=== PATIENT | female | born 1950 | race Hispanic/Latino ===

== ENCOUNTER → 2016-10-09 | Outpatient (CLI) | payer OTHER ==
--- NOTE | 2016-10-10 07:08 | RAD ---
EXAM DESCRIPTION: Foot,Left 3 Views CLINICAL HISTORY: 66 years Female, PAIN COMPARISON: None. FINDINGS: 3 views of the left foot show no acute fracture or malalignment. There is a small plantar calcaneal spur. No radiopaque foreign body or soft tissue gas. IMPRESSION: Calcaneal spurring, otherwise unremarkable exam. Electronically signed by: Carlos Cabrera MD 10/10/2016 7:08 AM CDT Workstation: [id number]
== END | disposition home or self-care (01) ==
LOC: YCFC.O 12:31
PROVIDERS: ATTEND Nurse Practitioner Family
DX: M79.672 Pain in left foot (principal)

== ENCOUNTER → 2016-11-09 | Outpatient (CLI) | payer OTHER ==
--- NOTE | 2016-11-09 12:59 | MAM ---
History: Well woman exam. Date of exam: 11/09/2016 Services provided: Bilateral full field digital screening mammography. CAD, the images were reviewed with R2 computer aided detection. FINDINGS: Glandular tissue is scattered glandular contour with increased mammographic density. No prior study is currently available for comparison. No dominant mass, architectural distortion or clustered microcalcification. IMPRESSION: Benign exam Recommendation: Routine annual mammography BIRAD CATEGORY: 2 BENIGN Electronically signed by: Delmy Estes MD 11/09/2016 12:58 PM CDT Workstation: [id number]
== END | disposition home or self-care (01) ==
LOC: MAMMO 08:46
PROVIDERS: ATTEND Family Medicine
DX: Z12.31 Encounter for screening mammogram for malignant neoplasm of breast (principal)

== ENCOUNTER → 2016-11-22 | Outpatient (CLI) | payer OTHER | LOC: GMAM 14:47 | PROVIDERS: ATTEND Family Medicine | DX: R31.21 Asymptomatic microscopic hematuria (principal) ==

== ENCOUNTER 2016-11-24 09:10 | Emergency (ER) | payer OTHER ==
[2016-11-24 09:36] VITALS: TEMP 98.8
--- NOTE | 2016-11-24 09:41 | ED.PDOC ---
History of Present Illness - General Chief Complaint: General Stated Complaint: nausea/dizziness Time Seen by Provider: 11/24/16 09:30 Source: patient Exam Limitations: language barrier - speaks only lumber checker present - History of Present Illness Initial Comments: Alicia Moura 66 y/o female stated thru events assistant that she had Lumbar mri done for her chronic back pain then after the test was done she felt dizzy,nauseous, and personnel at [facility] found her to be confused but patient stated she does not speak polish and most likely the language barrier that she was then brought here and events assistant was called .She denies medical illness except for her chronic back pain and osteoporosis.Denies weakness,blurry vision dysarthria, bowel or bladder dysfunction. Timing/Duration: 1-3 hours Severity: mild Improving Factors: nothing, other - felt better gradually while in ER Worsening Factors: nothing Associated Symptoms: other - see hpi Allergies/Adverse Reactions: Allergies NO KNOWN ALLERGY Allergy (Verified 11/24/16 09:40) Review of Systems - Review of Systems Constitutional: States: no symptoms reported EENTM: States: no symptoms reported Respiratory: States: no symptoms reported Cardiology: States: no symptoms reported Gastrointestinal/Abdominal: States: no symptoms reported Genitourinary: States: no symptoms reported Musculoskeletal: States: no symptoms reported Skin: States: no symptoms reported Neurological: States: see HPI Endocrine: States: see HPI Hematologic/Lymphatic: States: no symptoms reported Past Medical History (General) - Patient Medical History Hx Other PMH: Yes - osteoporosis,chronic back pain Surgical History: other - hysterectomy - Social History Hx Tobacco Use: No Hx Alcohol Use: No Hx Substance Use: No - Activities of Daily Living Patient Lives Alone: No - lives with son Grooming Ability: Independent Eating (Feeding) Ability: Independent Toileting Ability: Independent - Female History Patient is a Female of Child Bearing Age (10 -59 yrs old): No Family Medical History - Family History Father Family History: Unknown Mother Family History: No Known Living Status: Physical Exam - Physical Exam General Appearance: Alert, Anxious, No apparent distress Eye Exam: bilateral normal Ears, Nose, Throat: abnormal TM (R), abnormal TM (L), other - hearing aids Neck: non-tender, full range of motion, supple Respiratory: chest non-tender, lungs clear, normal breath sounds, no respiratory distress Cardiovascular/Chest: normal peripheral pulses, regular rate, rhythm, no murmur Peripheral Pulses: radial,right: 1+, radial,left: 1+ Gastrointestinal/Abdominal: normal bowel sounds, non tender, soft, no organomegaly Back Exam: normal inspection, no CVA tenderness, no vertebral tenderness Extremity: normal range of motion, non-tender, normal inspection, no calf tenderness Neurologic: no motor/sensory deficits, alert, oriented x 3, other - speech fluent in vietnamese only Skin Exam: normal color, warm/dry Lymphatic: no adenopathy Progress - Progress Progress: 11/24/16 09:49 Vital Signs - 8 hr 11/24/16 09:35 Temperature 98.8 F Pulse Rate [ 67 Right Radial] Respiratory 20 Rate Blood Pressure 161/90 [Right Arm] O2 Sat by Pulse 97 Oximetry Departure - Departure Clinical Impression: Nausea, Spell of dizziness Time of Disposition: 09:51 Disposition: Discharge to Home or Self Care Condition: Good Departure Forms: ED Discharge - Pt. Copy, Patient Portal Self Enrollment Instructions: Combating Dizziness in Older Adults, DI for Dizziness-Nonvertigo Referrals: René Maldonado MD [Primary Care Provider] - 1-2 Weeks Additional Instructions: RETURN TO EMERGENCY ROOM NEEDED
[2016-11-24 10:02] VITALS: BP 173/89; O2SAT 98
== END 2016-11-24 09:55 | disposition home or self-care (01) ==
LOC: ER 09:10
DX: R11.0 Nausea (principal); R42 Dizziness and giddiness; M81.0 Age-related osteoporosis without current pathological fracture; G89.29 Other chronic pain; M54.9 Dorsalgia, unspecified

== ENCOUNTER → 2016-11-24 | Outpatient (CLI) | payer OTHER ==
--- NOTE | 2016-11-24 15:30 | MRI ---
EXAM DESCRIPTION: Lumbar Spine w/o Contrast CLINICAL HISTORY: 66 years,Female,LUMBAR RADICULOPATHY COMPARISON: None TECHNIQUE: MRI before multiple sequences of the lumbar spine. FINDINGS: The vertebral bodies demonstrate normal signal and morphology. Spinal cord normal signal and morphology. Tip of the conus is at L2. Surrounding soft tissues demonstrates a bilobed cyst partially included exam in the liver lower right lobe measuring at least 3.4 cm. L5-S1: Disk height is unremarkable. There is no significant disc bulge. The facettes mild hypertrophy. There is no spinal canal stenosis. There is no neural foraminal stenosis. L4-5: Disk height is unremarkable. There is no significant disc bulge. The facettes mild to moderate hypertrophy. There is no spinal canal stenosis. There is no neural foraminal stenosis. L3-4: Disk height is unremarkable. There is no significant disc bulge. The facettes mild hypertrophy. There is no spinal canal stenosis. There is no neural foraminal stenosis. L2-3: Disk height is unremarkable. There is no significant disc bulge. The facettes mild hypertrophy. There is no spinal canal stenosis. There is no neural foraminal stenosis. L1-2: Disk height is unremarkable. There is no significant disc bulge. The facettes mild hypertrophy. There is no spinal canal stenosis. There is no neural foraminal stenosis. IMPRESSION: Mild facet disease throughout the entire lumbar spine but no acquired stenotic disease. Bilobed cyst partially included exam in the lower right liver Electronically signed by: Parish Posada MD 11/24/2016 3:28 PM CDT
--- NOTE | 2016-11-24 15:51 | CT ---
EXAM DESCRIPTION: Abdomen t/Pelvis w/o Contrast CLINICAL HISTORY: MICROSCOPIC HEMATURIA COMPARISON: None. TECHNIQUE: Spiral-axial scans 5 x 5 mm intervals through the abdomen and pelvis without oral or IV contrast. Coronal and sagittal 2.0 mm reconstructions. Total Exam DLP: Approximately 4400 mGy-cm. This exam was performed according to our departmental CT dose-optimization program which includes automated exposure control, adjustment of the mA and/or kV according to patient size and/or use of iterative reconstruction technique; to reduce radiation dose to as low as reasonably achievable (ALARA). FINDINGS: Lung bases and pleura: Demonstrate Mosaic density and scattered dilated airspaces. Minimal scarring. No pleural effusion. Liver, stomach, spleen, and adrenal glands: 3.8 cm lobulated fluid density mass and 3.7 cm lobulated fluid density mass in the superior right lobe and the lateral left lobe with a smaller cyst also in the lateral segment. 4.4 cm cyst inferior right lobe. Spleen stomach and adrenal glands are unremarkable. Pancreas, Gallbladder, and Ducts: Gallbladder is visualized. Ducts and pancreas negative. Kidneys and Ureters: Unremarkable. No radiodense stones. Process or hydroureter. No perinephric or periureteral edema. Mesentery: No free fluid or free air. No stranding or fascial thickening. Aorta: Minimal atherosclerotic calcification and ectasia. Small Bowel: Minimal gas and fluid. No significant air-fluid levels are distention. Terminal Ileum/Cecum: No significant air-fluid levels are distention. Appendix is visualized. Normal density of the surrounding fat. Colon: Scattered diverticula. No wall thickening or pericolonic fatty stranding or fluid collection. No distention. Pelvic Organs: No radiodense stones in the urinary bladder. No fluid in the cul-de-sac. Vaginal cuff is unremarkable. Small surgical clips. Spine and Bony Pelvis: Spondylosis in the included thoracic disc spaces. Minimal bulging L5-S1 disc. Bilateral L5-S1 facet degeneration. Abdominal Wall/Back Soft Tissues: Minimal diastases at the umbilicus. Bilateral inguinal lymph nodes. IMPRESSION: 1. Kidneys ureters and urinary bladder are unremarkable. No radiodense stones or obstruction. 2. Stable cysts in the liver since December 2011. 3. Progressive bibasilar lung process, possibly emphysematous changes. Electronically signed by: Dusty Pagan MD 11/24/2016 3:49 PM CDT
== END | disposition home or self-care (01) ==
LOC: CT 07:50
PROVIDERS: ATTEND Family Medicine
DX: M54.16 Radiculopathy, lumbar region (principal); R31.21 Asymptomatic microscopic hematuria

== ENCOUNTER → 2017-07-25 | Outpatient (CLI) | payer OTHER | LOC: GMAM 14:02 | PROVIDERS: ATTEND Family Medicine | DX: R00.2 Palpitations (principal); I10 Essential (primary) hypertension; R07.89 Other chest pain ==

== ENCOUNTER → 2018-01-24 | Outpatient (CLI) | payer OTHER | LOC: GMAJS 14:29 | PROVIDERS: ATTEND Physician Assistant | DX: R30.0 Dysuria (principal) ==

== ENCOUNTER → 2018-06-07 | Outpatient (CLI) | payer OTHER ==
--- NOTE | 2018-06-07 15:37 | US ---
US THYROID CLINICAL STATEMENT: THYROID SONO. COMPARISON: None FINDINGS: Size right thyroid lobe: 4.3 x 2.4 x 2.2 cm Size left thyroid lobe: 4.0 x 1.1 x 0.9 cm Size isthmus: 0.3 cm Estimated total number of nodules greater than or equal to 1 cm: 1. Very heterogeneous parenchyma. Nodule 1: Size: 3.8 x 1.9 x 2.2 cm Location: Right Mid Composition: solid or almost completely solid: 2 points Echogenicity: hypoechoic: 2 points Shape: wider than tall: 0 points Margins: smooth: 0 points. The rim is more hypoechoic than the center. Peripheral vascularity. Echogenic foci: none: 0 points ACR Total Points: 4; ACR TI-RADS risk category: TR4 - moderately suspicious nodule. No nodules or cysts in the left lobe. Heterogeneous echoes mildly increased vascularity. Soft tissue around the thyroid gland show no evidence of dominant solid mass or distinct cyst. No parenchymal edema or large calcifications. No overlying skin changes. Normal vascularity. IMPRESSION: 1. Nodule 1: ACR TI-RADS 2017 Category TR4. Recommend: Ultrasound-guided fine needle aspiration. Recommendations based upon [facility] Best Practice recommendations and ACR TI-RADS 2017 guidelines. Please see below*. 2. Soft tissue around the thyroid gland is unremarkable. *ACR TI-RADS 2017 Recommendations: TR1: No FNA or follow up TR2: No FNA or follow up TR3: FNA if >/= 2.5 cm, follow up if 1.5 - 2.4 cm in 1, 3, and 5 years TR4: FNA if >/= 1.5 cm, follow up if 1.0 - 1.4 cm in 1, 2, 3, and 5 years TR5: FNA if >/= 1.0 cm, follow up if 0.5 - 0.9 cm every year for 5 years ACR TI-RADS recommends that no more than two nodules with the highest ACR TI-RADS total point should be biopsied and no more than four nodules should be followed. Electronically signed by: Dusty Pagan MD 06/07/2018 3:[address] [facility]
== END ==
LOC: US 09:43
PROVIDERS: ATTEND Family Medicine
DX: E04.1 Nontoxic single thyroid nodule (principal)

== ENCOUNTER → 2018-06-18 | Outpatient (CLI) | payer OTHER ==
--- NOTE | 2018-06-18 14:44 | US ---
Thyroid Biopsy, Image-Guided: Ultrasound CLINICAL INFORMATION: Right thyroid lobe mass nodule. TECHNIQUE: Procedure was explained to the patient with risks and benefits. The patient gave verbal and written consent. Sterile preparation draping. 1% xylocaine dermal anesthetic 9-1 mixture with sodium bicarbonate. Sterile ultrasound guidance. A total of 5 passes into right thyroid nodule; 3 needle samplings with a separate 1.5 inch, 25-gauge needle per sample, and 2 aspiration, with a separate 1.5 inch, 25-gauge needle/10-cc syringe set, per aspiration. Each sample was placed on a separate slide and fixed in 95% alcohol container. Saccomanno fluid drawn into aspirate needle and rinse injected into Saccomanno container. Specimens to be sent for pathologic examination at remote facility. . Patient tolerated procedure well, except for minor pain. Biopsy #: 1 Nodule reference number based on prior diagnostic ultrasound:1 Maximum size: 3.8 cm Location: right; mid ACR TI-RADS risk category: TR4 (4-6 points) Reason for biopsy: meets ACR TI-RADS criteria Complications: None Minor pain. IMPRESSION: Successful ultrasound guided fine needle aspiration of right thyroid nodule. ACR TI-RADS Risk Category TR 4. Pathology results pending. Electronically signed by: Dusty Pagan MD 06/18/2018 2:42 PM [facility]
== END ==
LOC: US 08:54
PROVIDERS: ATTEND Family Medicine
DX: E04.1 Nontoxic single thyroid nodule (principal)

== ENCOUNTER → 2018-07-18 | Outpatient (CLI) | payer MEDICARE, OTHER ==
--- NOTE | 2018-07-19 11:50 | CT ---
EXAM DESCRIPTION: Chest w/wo Contrast CLINICAL HISTORY: 68 years Female, MATHEW'S SYNDROME COMPARISON: Radiographs of the chest dated 07/08/2018. TECHNIQUE: Contiguous thin section axial images through the chest were obtained before and after the administration of intravenous contrast. Sagittal and coronal reconstructions were reviewed. FINDINGS: The right thyroid lobe is enlarged and heterogenous. The left thyroid lobe appears normal. No evidence of abnormally enlarged mediastinal, hilar or axillary lymphadenopathy. Trachea is midline and the central tracheobronchial tree is patent. Minimal atelectasis is noted in the bilateral lung bases, right middle lobe and lingula. No evidence of consolidation or groundglass changes. No nodules or masses are visualized. No evidence of pleural effusions. The heart is normal in size with no pericardial effusion. The visualized aorta is nonaneurysmal with no significant atherosclerosis. The superior vena cava is normal in size and caliber.No significant coronary artery atherosclerosis. The esophagus appears normal throughout its visualized length. Irregular hypodense lesions are identified in the left hepatic lobe most likely representing cysts. No other abnormality is noted in the imaged upper abdomen. Moderate degenerative changes are identified throughout the visualized spine. IMPRESSION: 1. Enlarged and heterogenous right thyroid lobe. Ultrasound is recommended for further evaluation. 2. No other abnormality is noted in the chest. This exam was performed according to our departmental dose-optimization program, which includes automated exposure control, adjustment of the mA and/or kV according to patient size and/or use of iterative reconstruction technique. Electronically signed by: Abigail Delarosa MD 07/19/2018 11:47 AM CDT
== END ==
LOC: CT 10:17
PROVIDERS: ATTEND Nurse Practitioner Family
DX: G90.2 Horner's syndrome (principal); E07.9 Disorder of thyroid, unspecified

== ENCOUNTER → 2018-07-23 | Outpatient (CLI) | payer OTHER ==
--- NOTE | 2018-07-23 17:23 | MRI ---
EXAM DESCRIPTION: Brain w/wo Contrast CLINICAL HISTORY: HOMERS SYNDROME COMPARISON: None available TECHNIQUE: MRI of the brain is performed according to our usual protocol including multiplanar multi sequence technique. Post gadolinium imaging is performed following IV administration of routine adult dose of gadolinium contrast. FINDINGS: Sagittal T1 images show intact corpus callosum. Normal pituitary gland with normal T1 appearance of the juana and medulla and upper cervical cord. Normal signal intensity within the clivus and calvarium. Axial T2 fat sat images reveal preservation of intracranial vascular flow voids. Normal barrera matter T2 signal intensity. Normal ventricles with normal gyral and sulcal fold pattern. The globes appear intact and symmetrical. No abnormal fluid signal in the paranasal sinuses, tympanic cavities or mastoid air cells. Axial flair images show scattered hyperintensities at the subcortical and central white matter of both cerebral hemispheres with confluent areas around the ventricles. Findings are consistent with chronic microvascular ischemic changes related to aging, diabetes or hypertension. No thalamic or brainstem involvement.. Diffusion weighted images are negative for focal intense increased signal intensity in the brain parenchyma to suggest restricted diffusion. ADC mapping is negative. Axial T1 precontrast images show normal barrera-white matter differentiation. No high signal intensity hemorrhagic lesion of the brain parenchyma. No subdural hematoma. Axial susceptibility weighted images are negative for focal signal loss to suggest abnormal brain parenchymal calcification or hemosiderin deposition. After IV contrast, axial T1 images show normal enhancement of intracranial vessels. No enhancing intracranial mass or abnormal parenchymal enhancement to suggest disruption of the blood brain barrier. Coronal T1 postcontrast images show normal dural sinus enhancement with normal enhancement of the pituitary gland. IMPRESSION: No acute intracranial pathologic process. Multifocal T2/FLAIR hyperintensities within the cerebral white matter consistent with chronic microvascular ischemic changes. Electronically signed by: Nilay Lui MD 07/23/2018 5:09 PM CDT
== END ==
LOC: MRI 13:07
PROVIDERS: ATTEND Nurse Practitioner Family
DX: G90.2 Horner's syndrome (principal)

== ENCOUNTER → 2018-10-15 | Outpatient (CLI) | payer OTHER ==
--- NOTE | 2018-10-15 14:51 | CT ---
EXAM: Abdomen/Pelvis w/wo Contrast CLINICAL HISTORY: EPIGASTRIC PAIN COMPARISON STUDY: CT abdomen and pelvis November 24, 2016 TECHNICAL: Pre and post IV contrast images were performed through the abdomen and pelvis. Sagittal and coronal reconstructions were obtained. Delayed excretion phase urogram images were acquired. FINDINGS: The visible portion of the chest is negative. The heart is not enlarged. A small hiatal hernia is unchanged. Noncontrast images show no urinary calculi. Postcontrast images of the kidneys show normal enhancing renal parenchyma without a mass or other abnormality. The delayed excretion phase images show contrast excreted into nondilated collecting systems and ureters. There is no filling defect identified. The urinary bladder as imaged is distended and has no visible abnormality. The liver, spleen, pancreas, adrenal glands, and kidneys enhance appropriately and demonstrate no acute abnormality. Multiple circumscribed hepatic cysts are benign findings. A cyst in the left hepatic lobe has enlarged from 4 x 3.4 cm to 5 x 4.3 cm. There is a slight convexity along the hepatic margin at this location and this is just in the epigastric or subxiphoid region. The gallbladder is intact and there is no evidence of biliary dilatation. There is no bowel obstruction or free air. Mild left-sided diverticulosis is present. There is no acute inflammatory process. The appendix is visible and normal. The aorta, IVC and retroperitoneum are negative. The ventral abdominal wall is intact. There are no subcutaneous or soft tissue abnormalities. Structures within the pelvis are negative. The uterus is absent. Moderate degenerative changes of the right sacroiliac joint and milder degenerative changes of the left sacroiliac joint. IMPRESSION: 1. Enlargement of an anterior left hepatic simple cyst may be palpable subxiphoid/epigastric. This is a benign finding. 2. No acute intra-abdominal/pelvic abnormality. 3. No urinary calculi or hydronephrosis. 4. Mild diverticulosis. 5. Right worse than left sacroiliitis. This exam was performed according to our departmental dose-optimization program, which includes automated exposure control, adjustment of the mA and/or kV according to patient size and/or use of iterative reconstruction technique. Electronically signed by: Awais Sanders MD 10/15/2018 2:49 PM CDT
== END ==
LOC: CT 09:48
PROVIDERS: ATTEND Family Medicine
DX: K57.90 Diverticulosis of intestine, part unspecified, without perforation or abscess without bleeding (principal); K76.89 Other specified diseases of liver; M46.1 Sacroiliitis, not elsewhere classified

== ENCOUNTER → 2018-11-19 | Outpatient (CLI) | payer OTHER | LOC: LAB.O 12:16 | PROVIDERS: ATTEND Family Medicine | DX: Z00.00 Encounter for general adult medical examination without abnormal findings (principal); R35.0 Frequency of micturition; R10.13 Epigastric pain ==

== ENCOUNTER → 2019-03-11 | Outpatient (CLI) | payer OTHER ==
--- NOTE | 2019-03-11 15:17 | RAD ---
EXAM DESCRIPTION: Knee,Left Complete CLINICAL HISTORY: 68 years, Female, PAIN IN LEFT KNEE COMPARISON: None TECHNIQUE: Three views left knee FINDINGS: Bones are mildly osteopenic and minimally degenerative with preserved joint space. No significant effusion is seen. No fracture or dislocation noted. The distal femur and proximal tibia and fibula appear intact. IMPRESSION: 1. Negative left knee three views with mild osteopenia and degenerative disease Electronically signed by: René Cardona MD 03/11/2019 3:15 PM [facility]
== END ==
LOC: RAD 12:10
PROVIDERS: ATTEND Family Medicine
DX: M25.562 Pain in left knee (principal); M85.862 Other specified disorders of bone density and structure, left lower leg

== ENCOUNTER → 2019-12-19 | Outpatient (CLI) | payer OTHER | LOC: LAB.O 13:39 | PROVIDERS: ATTEND Nurse Practitioner Family | DX: I10 Essential (primary) hypertension (principal); E04.1 Nontoxic single thyroid nodule ==

== ENCOUNTER 2020-02-19 10:32 | Emergency (ER) | payer OTHER ==
--- NOTE | 2020-02-19 11:25 | RAD ---
EXAM DESCRIPTION: Chest,1 View CLINICAL HISTORY: chest and back pain 1 week COMPARISON: July 08, 2018 IMPRESSION: Single AP portable upright view of the chest shows cardiac silhouette and pulmonary vasculature to be within normal limits. Lungs are hyperinflated without acute appearing infiltrate or consolidation.. No obvious pleural effusion or pneumothorax is seen. Electronically signed by: Winston Rock MD 02/19/2020 11:23 AM CDT [facility]
[2020-02-19] MEDS ORDERED: POTASSIUM CHLORIDE ELIXIR 20 MEQ/15 ML UD PO ONE (11:48)
--- NOTE | 2020-02-19 12:12 | ED.PDOC ---
History of Present Illness - General Chief Complaint: General Stated Complaint: breast pain Time Seen by Provider: 02/19/20 10:58 Source: patient Exam Limitations: language barrier - History of Present Illness Initial Comments: The patient is a 69-year-old female presented to the emergency room secondary to what was initially reported as chest pain however upon further evaluation this appears to be left upper lateral chest pain as well as left posterior upper chest discomfort. This started about a week ago. She is uncertain if there was any repetitive motion or traumatic injury. There is no bruising. There is no deformity. There is tenderness to palpation over the lateral pectoralis muscle. There is tenderness to palpation over the supraspinatus and infraspinatus muscles on the left. There is some discomfort extending up the trapezius towards the neck on the left. No shortness of breath. No fever. No runny nose. No real sore throat. No syncope or near syncope. Pain is worse with movement. No shortness of breath. Timing/Duration: 1 week, constant, getting worse Severity: moderate Improving Factors: immobilization Worsening Factors: movement Associated Symptoms: chest pain Allergies/Adverse Reactions: Allergies NO KNOWN ALLERGY Allergy (Verified 11/24/16 09:40) Home Medications: Ambulatory Orders Cyclobenzaprine HCl [Flexeril] 5 mg PO TID PRN #30 tab 02/19/20 predniSONE [Prednisone] 20 mg PO DAILY #5 tab 02/19/20 Review of Systems - Review of Systems Constitutional: States: no symptoms reported EENTM: States: no symptoms reported Respiratory: States: no symptoms reported Cardiology: States: chest pain Gastrointestinal/Abdominal: States: no symptoms reported Genitourinary: States: no symptoms reported Musculoskeletal: States: back pain Skin: States: no symptoms reported Neurological: States: no symptoms reported Endocrine: States: no symptoms reported All other Systems: No Change from Baseline Past Medical History (General) - Patient Medical History Hx Stroke: No Hx Congestive Heart Failure: No Hx Hypertension: Yes Hx Diabetes: No - Vaccination History Hx Influenza Vaccination: No Hx Pneumococcal Vaccination: No - Social History Hx Tobacco Use: No Hx Alcohol Use: No Hx Substance Use: No Family Medical History - Family History Mother Family History: No Known Living Status: Father Family History: Unknown Physical Exam - Physical Exam General Appearance: Alert, Anxious, No apparent distress Eye Exam: bilateral normal Ears, Nose, Throat: hearing grossly normal, normal pharynx Neck: full range of motion, other - See history of present illness Respiratory: normal breath sounds, no respiratory distress, no accessory muscle use Cardiovascular/Chest: normal peripheral pulses, regular rate, rhythm, no edema Peripheral Pulses: radial,right: 2+, radial,left: 2+ Gastrointestinal/Abdominal: non tender, soft Rectal Exam: deferred Back Exam: other - See history of present illness Extremity: normal range of motion, non-tender, normal inspection, no pedal edema, normal capillary refill 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 This appears to be musculoskeletal in nature. The patient also has mild hyponatremia that may be contributing. I do want her to hold her hydrochlorothiazide for the next 2 weeks and have a repeat level checked in 2 weeks. She was given a dose of oral potassium here. Additionally the patient is going to be written for prednisone for the next 5 days and Flexeril for as needed use for the next 5 days. Topical heat and stretching may be beneficial. Building Code Inspector was used. ER warnings are given. Follow-up with primary care doctor in 2 weeks otherwise. gerry navarrete [phone] - Results/Orders Results/Orders: Chest x-ray shows no acute pathology. EKG shows normal sinus rhythm at 66 bpm. There is a flipped T wave in lead III but otherwise no evidence of any ST segment or T wave changes that could be indicative of acute ischemia. Normal R wave progression. Normal QT interval. Normal axis. Laboratory Tests 02/19/20 02/19/20 02/19/20 11:05 11:05 11:05 WBC 4.9 RBC 4.53 Hgb 14.3 Hct 40.8 MCV 90.1 MCH 31.6 H MCHC 35.1 RDW 12.6 Plt Count 177 MPV 8.3 Absolute Neuts (auto) 3.40 Absolute Lymphs (auto) 1.00 Absolute Monos (auto) 0.30 Absolute Eos (auto) 0.20 Absolute Basos (auto) 0.00 Neutrophils % 69.1 Lymphocytes % 21.0 Monocytes % 5.7 Eosinophils % 3.6 Basophils % 0.6 PT 10.0 INR 1.01 PTT (SP) 26.1 Sodium 138 Potassium 3.3 L Chloride 102 Carbon Dioxide 26 Anion Gap 13.3 BUN 12 Creatinine 0.48 L BUN/Creatinine Ratio 25.0 H Random Glucose 106 H Serum Osmolality 275.9 Calcium 8.8 Magnesium Total Bilirubin 0.9 AST 24 ALT 20 Alkaline Phosphatase 78 Creatine Kinase 76 CK-MB (CK-2) 1.6 CK-MB (CK-2) % Not Reportable Troponin I 0.07 H* B-Natriuretic Peptide 27.1 Serum Total Protein 7.2 Albumin 4.0 Globulin 3.2 Albumin/Globulin Ratio 1.3 Urine Color Urine Appearance Urine pH Ur Specific [place] Urine Protein Urine Glucose (UA) Urine Ketones Urine Blood Urine Nitrite Urine Bilirubin Urine Urobilinogen Ur Leukocyte Esterase Urine RBC Urine WBC Ur Epithelial Cells Amorphous Sediment Urine Bacteria Urine Mucus 02/19/20 02/19/20 11:05 11:08 WBC RBC Hgb Hct MCV MCH MCHC RDW Plt Count MPV Absolute Neuts (auto) Absolute Lymphs (auto) Absolute Monos (auto) Absolute Eos (auto) Absolute Basos (auto) Neutrophils % Lymphocytes % Monocytes % Eosinophils % Basophils % PT INR PTT (SP) Sodium Potassium Chloride Carbon Dioxide Anion Gap BUN Creatinine BUN/Creatinine Ratio Random Glucose Serum Osmolality Calcium Magnesium 2.0 Total Bilirubin AST ALT Alkaline Phosphatase Creatine Kinase CK-MB (CK-2) CK-MB (CK-2) % Troponin I B-Natriuretic Peptide Serum Total Protein Albumin Globulin Albumin/Globulin Ratio Urine Color Yellow Urine Appearance Clear Urine pH 7.0 Ur Specific [place] 1.010 Urine Protein Negative Urine Glucose (UA) Negative Urine Ketones Negative Urine Blood Negative Urine Nitrite Negative Urine Bilirubin Negative Urine Urobilinogen 0.2 Ur Leukocyte Esterase Negative Urine RBC 0 Urine WBC 1-3 Ur Epithelial Cells 1-3 Amorphous Sediment 2+ Urine Bacteria 1+ Urine Mucus Trace covid negative today Departure - Departure Clinical Impression: Upper back pain on left side, Hypokalemia Disposition: Discharge to Home or Self Care Condition: Fair Departure Forms: ED Discharge - Pt. Copy, Patient Portal Self Enrollment Instructions: Muscle Spasms (DC) Diet: regular diet Activity: increase activity as tolerated Prescriptions: Cyclobenzaprine HCl [Flexeril] 5 mg PO TID PRN #30 tab PRN Reason: Muscle Spasms predniSONE [Prednisone] 20 mg PO DAILY #5 tab Home Medications: Ambulatory Orders Cyclobenzaprine HCl [Flexeril] 5 mg PO TID PRN #30 tab 02/19/20 predniSONE [Prednisone] 20 mg PO DAILY #5 tab 02/19/20 Additional Instructions: The patient is a 69-year-old female presenting with left upper chest and upper back discomfort for the last week. This appears to be musculoskeletal in nature. The patient also has mild hyponatremia that may be contributing. I do want her to hold her hydrochlorothiazide for the next 2 weeks and have a repeat level checked in 2 weeks. She was given a dose of oral potassium here. Additionally the patient is going to be written for prednisone for the next 5 days and Flexeril for as needed use for the next 5 days. Topical heat and stretching may be beneficial. Building Code Inspector was used. ER warnings are given. Follow-up with primary care doctor in 2 weeks otherwise.
[2020-02-19 19:00] VITALS: BP 144/78; TEMP 97.5; O2SAT 98
== END 2020-02-19 12:30 | disposition home or self-care (01) ==
LOC: ER 10:32
DX: M54.6 Pain in thoracic spine (principal); E87.6 Hypokalemia; I10 Essential (primary) hypertension; R07.9 Chest pain, unspecified; Z20.828 Contact with and (suspected) exposure to other viral communicable diseases

== ENCOUNTER → 2020-06-29 | Outpatient (CLI) | payer OTHER | LOC: LAB.O 12:30 | PROVIDERS: ATTEND Internal Medicine Hepatology | DX: K76.89 Other specified diseases of liver (principal) ==